=== PATIENT | male | born 1970 | race African-American/Black ===

== ENCOUNTER 2024-10-24 16:09 | Emergency (ER) | payer SELFPAY ==
[~2024-10-24] VITALS: Ht 175.3 cm; Wt 91.0 kg
[2024-10-24 16:25] VITALS: O2SAT 100
[2024-10-24 17:23] LABS: BASOPHILS % 0.4 % (0.0-2.0); EOSINOPHILS % 0.7 % (0.0-5.0); HEMATOCRIT. 42.9 % (42.0-52.0); HEMOGLOBIN. 14.2 g/dL (14.0-18.0); LYMPHOCYTES % 28.7 % (20.0-50.0); MEAN CORPUSCULAR HEMOGLOBIN 29.4 pg (28.0-32.0); MEAN CORPUSCULAR HGB CONC 33.1 g/dL (31.0-37.0); MEAN CORPUSCULAR VOLUME 88.9 fL (80.0-94.0); MEAN PLATELET VOLUME 8.3 fl (7.4-10.4); MONOCYTES % 10.2 % (2.0-8.0); PLATELET 269 x1000/uL (130-400); RED BLOOD CELL COUNT 4.83 mill/uL (4.7-6.1); RED CELL DISTRIBUTION WIDTH 16.6 % (11.6-14.6); WHITE BLOOD COUNT 8.9 x1000/uL (4.5-11.0)
[2024-10-24 17:28] LABS: CHLORIDE 106 mEq/L (98-107); POTASSIUM 4.2 mEq/L (3.5-5.1); SODIUM 138 mEq/L (136-145)
[2024-10-24 17:29] LABS: CALCIUM 9.1 mg/dL (8.7-10.4); CARBON DIOXIDE 22 mEq/L (21-32)
[2024-10-24 17:33] LABS: TROPONIN I HIGH SENSITIVITY 10 ng/L (3.0-53)
[2024-10-24 17:34] LABS: CREATININE 1.2 mg/dL (0.6-1.3); GLUCOSE 109 mg/dL (70-105); UREA NITROGEN BLOOD 18 mg/dL (9-23)
[2024-10-24 17:36] LABS: INR 1.1; PROTHROMBIN TIME 12.4 sec (9.6-11.0)
[2024-10-24 19:45] LABS: TROPONIN I HIGH SENSITIVITY 13 ng/L (3.0-53)
[2024-10-24] MEDS ORDERED: LORA10CA MT (20:30)
[2024-10-24] MEDS ORDERED: FLUT9.9S BOTHNSTRLS (20:30)
[2024-10-24] MEDS ORDERED: AMLO5TAB88 MT (20:30)
[2024-10-24 20:58] VITALS: BP 152/87; PULSE 84; RESP 18; TEMP 37.16964; O2SAT 100
== END 2024-10-24 20:51 | disposition home or self-care (01) ==
LOC: ER 16:09
DX: I10 Essential (primary) hypertension (principal); R06.02 Shortness of breath; R09.81 Nasal congestion; R06.2 Wheezing; J40 Bronchitis, not specified as acute or chronic; J30.9 Allergic rhinitis, unspecified
CPT/HCPCS: 36415; 71045; 80048; 83880; 84484; 85025; 93005; 99285